=== PATIENT | male | born 1990 | race Caucasian/White ===

== ENCOUNTER → 2020-06-18 15:50 | Outpatient (BNVA) | payer OTHER, MEDICAID, SELFPAY | PROVIDERS: Visit Provider Anesthesiology | DX: S14.9XXA Injury of unspecified nerves of neck, initial encounter (principal) | CPT/HCPCS: 99204 ==

== ENCOUNTER 2020-06-25 14:00 | Outpatient (RCR) | payer OTHER, SELFPAY | END 2020-08-07 23:55 | disposition home or self-care (01) | LOC: HO.PAOS 14:00 | PROVIDERS: Visit Provider Psychologist | DX: F43.23 Adjustment disorder with mixed anxiety and depressed mood (principal) | CPT/HCPCS: 90791 ==

== ENCOUNTER 2021-06-29 13:45 | Outpatient (REF) | payer OTHER, SELFPAY | END 2021-06-29 13:46 | disposition home or self-care (01) | LOC: HO.LAB 13:45 | PROVIDERS: PCP Internal Medicine; Visit Provider Anesthesiology | DX: S14.9XXA Injury of unspecified nerves of neck, initial encounter (principal); G89.4 Chronic pain syndrome | CPT/HCPCS: 99212 ==

== ENCOUNTER → 2021-07-15 15:23 | Outpatient (BNVA) | payer OTHER, SELFPAY | PROVIDERS: PCP Internal Medicine; Visit Provider Anesthesiology | DX: G89.4 Chronic pain syndrome (principal); S14 Injury of nerves and spinal cord at neck level; S14.2 Injury of nerve root of cervical spine | CPT/HCPCS: 99212 ==

== ENCOUNTER → 2021-07-29 10:49 | Outpatient (BNVA) | payer OTHER, SELFPAY | PROVIDERS: PCP Internal Medicine; Visit Provider Anesthesiology | DX: Z51.81 Encounter for therapeutic drug level monitoring (principal); G89.4 Chronic pain syndrome; S14 Injury of nerves and spinal cord at neck level; S14.2 Injury of nerve root of cervical spine | CPT/HCPCS: 99212 ==

== ENCOUNTER 2024-09-28 11:23 | Emergency (ER) | payer MEDICAID, SELFPAY ==
[2024-09-28 12:12] VITALS: BP 113/52; PULSE 73; RESP 20; TEMP 36.6; O2SAT 95; BMI 37.0
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
--- OUTSIDE RECORDS SUMMARY | 2024-09-28 14:57 | XMS_ITS | Encounter Summary ---
Author Organization [facility] Address [address] [place] [address] Care Team Providers Care Extractor Loader And Unloader Name Role Phone Unknown, Doctor Primary Care Provider Unavailabl e Encounter Details Date Type Department Care Team (Late st Contact Info) Description 08/15/2024 Telephone [facility] [address], [place] [id number] Houston Heller MD [address], [place] [id number] Social History Tobacco Use Types Packs/Day Years Used Date Smoking Tobacco: Former Cigarettes Smokeless Tobacco: Never Alcohol Use Standard Drinks/Week Comments Yes 0 (1 standard drink = 0.6 oz pur e alcohol) Sex and Gender Information Value Date Recorded Sex Assigned at Male 08/19/2023 12:28 PM EST Legal Sex Male 5:35 AM EDT Gender Identity Male 08/23/2023 11:07 AM EST Sexual Orientation Not on file documented as of this encounter Miscellaneous Notes * Telephone Encounter - Rebecca Lopez - 09/06/2024 3:03 PM EST Call went straight to voicemail- left another message looking for WC information. * Telephone Encounter - Edgar Brady - 08/15/2024 10:47 AM EST Left voicemail for patient to touch base and see about following up with Dr Heller. We need to know if he is using workers comp and we would need an VITA with his insurance as we are not contracted with [facility]. documented in this encounter Plan of Treatment Not on file documented as of this encounter Visit Diagnoses Not on filedocumented in this encounter Care Teams Extractor Loader And Unloader Relationship Specialty Start Date End Date Unknown, Doctor Unknown Unknown, CAT PCP - General 08/19/23 documented as of this encounter
--- OUTSIDE RECORDS SUMMARY | 2024-09-28 14:57 | XMS_ITS | Clinical Summary ---
Author Organization [facility] Address [address] [place] [address] Care Team Providers Care Bagging Salvager Name Role Phone Unknown, Doctor Primary Care Provider Unavailabl e Allergies No known active allergies Medications methylPREDNISol one (MEDROL DOSEPACK) 4 mg tablet follow package directions 1 tablet Active Encounters Date Type Department Care Team Description 08/15/2024 Telephone [facility] [address] [place] [address] Houston Heller MD 07/12/2024 Telephone [facility] [address] [place] [address] Houston Heller MD 07/10/2024 9:12 PM EST - 07/11/2024 1:51 PM EST Emergency [facility] Emergency Department [address] [place] [address] Sonny Sheikh MD Sanseverino, Alexandra M., MD Acute low back pain without sciatica, unspecified back pain laterality (Primary Dx) Discharge Disposition: Home or Self Care (01) from Last 3 Months Social History Tobacco Use Types Packs/Day Years Used Date Smoking Tobacco: Former Cigarettes Smokeless Tobacco: Never Tobacco Cessation:Counseling Given: Not Answered Alcohol Use Standard Drinks/Week Comments Yes 0 (1 standard drink = 0.6 oz pur e alcohol) Sex and Gender Information Value Date Recorded Sex Assigned at Male 08/19/2023 12:28 PM EST Legal Sex Male 5:35 AM EDT Gender Identity Male 08/23/2023 11:07 AM EST Sexual Orientation Not on file Last Filed Vital Signs Vital Sign Reading Time Taken Comments Blood Pressure 142/75 07/11/2024 1:01 PM EST Pulse 60 07/11/2024 1:01 PM EST Temperature 36.8 ??C (98.2 ??F) 07/10/2024 6:09 PM ES T Respiratory Rate 16 07/11/2024 1:01 PM EST Oxygen Saturation 98% 07/11/2024 1:01 PM EST Inhaled Oxygen Concentration - - Weight 127 kg (280 lb) 07/10/2024 6:09 PM EST Height 193 cm (6' 4 ) 07/10/2024 6:09 PM EST Body Mass Index 34.08 07/10/2024 6:09 PM EST Plan of Treatment Health Maintenance Due Date Last Done Comments HIV Screening 1991 Varicella Vaccines (1 of 2 - 13+ 2-dose series) 2004 Hepatitis B Vaccines (1 of 3 - 19+ 3-dose series) 2010 COVID-19 Vaccine ( - 2023-2 5 season) 2024 Influenza Vaccine (#1) 2024 05/14/2014 Alcohol/Substance Use Screening 08/29/2024 DTaP,Tdap,and Td Vaccines (3 - Td or Tdap) 02/01/2028 01/31/2018, 01/04/2011 RSV Vaccine (60+ years old and patients) (1 - 1-dose 75+ series) 2066 Pneumococcal Vaccine: Pediatric (0-5 Years) and At-Risk Patients (6-64 Years) Aged Out No longer eligible based on patient's age to complete this topic Procedures * Due to [place] state law, this organization might not be sharing negative HIV tests. Procedure Name Priority Date/Time Associated Diagnosis Comments BASIC METABOLIC PANEL STAT 07/10/2024 10:53 PM EST TYPE AND SCREEN STAT 07/10/2024 10:53 PM EST PROTIME-INR STAT 07/10/2024 10:53 PM EST CBC AUTO DIFFERENTIAL STAT 07/10/2024 10:53 PM EST MRI LUMBAR SPINE WO CONTRAST STAT 07/10/2024 2:00 AM EST from Last 3 Months Results * Due to [place] state law, this organization might not be sharing negative HIV tests. * (ABNORMAL) CBC Auto Differential (07/10/2024 10:53 PM EST) WBC 6.2 3.8 - 10.8 10*3/uL 07/10/2024 11:13 PM EST [facility] RBC 4.47 4.20 - 5.80 10*6/uL 07/10/2024 11:13 PM [facility] Hemoglobin 12.2(L) 13.2 - 17.1 g/dL 07/10/2024 11:13 PM EST [facility] Hematocrit 37.9(L) 38.5 - 50.0 % 07/10/2024 11:13 PM EST [facility] MCV 84.8 80.0 - 100.0 fL 07/10/2024 11:13 PM EST [facility] MCH 27.3 27.0 - 33.0 pg 07/10/2024 11:13 PM EST [facility] MCHC 32.2 32.0 - 36.0 g/dL 07/10/2024 11:13 PM EST [facility] RDW 13.5 11.0 - 15.0 % 07/10/2024 11:13 PM EST [facility] Platelets 225 140 - 400 10*3/uL 07/10/2024 11:13 PM [facility] MPV 10.3 7.5 - 12.5 fL 07/10/2024 11:13 PM EST [facility] Neutrophil % 42.3 % 07/10/2024 11:13 PM EST [facility] Immature Grans % 0.3 0.0 - 0.9 % 07/10/2024 11:13 PM EST [facility] Lymphocyte % 46.3 % 07/10/2024 11:13 PM EST [facility] Monocyte % 7.6 % 07/10/2024 11:13 PM EST [facility] Eosinophil % 3.2 % 07/10/2024 11:13 PM EST [facility] Basophil % 0.3 % 07/10/2024 11:13 PM EST [facility] Neutrophil # 2.62 1.50 - 7.80 10*3/uL 07/10/2024 11:13 PM EST [facility] Immature Grans # <0.03 <=0.03 10*3/uL 07/10/2024 11:13 PM EST [facility] Lymphocyte # 2.90 0.85 - 3.90 10*3/uL 07/10/2024 11:13 PM EST [facility] Monocyte # 0.50 0.20 - 0.95 10*3/uL 07/10/2024 11:13 PM EST [facility] Eosinophil # 0.20 0.02 - 0.50 10*3/uL 07/10/2024 11:13 PM EST [facility] Basophil # <0.03 0.00 - 0.20 10*3/uL 07/10/2024 11:13 PM EST [facility] nRBC % 0.0 /100 WBCs 07/10/2024 11:13 PM EST [facility] nRBC # <0.01 <0.01 10*3/uL 07/10/2024 11:13 PM EST [facility] Blood Structure of peripheral vein / Unknown Venipuncture / Unknown 07/10/2024 10:53 PM EST 07/10/2024 11:07 PM EST us Sonny Sheikh MD LAB BLOOD ORDERABLES F inal Result Performing Organization Address [facility] Co de Phone Number [facility] [address] [place] [address], [place] * Protime-INR (07/10/2024 10:53 PM EST) PT 10.2 9.6 - 12.4 Seconds 07/10/2024 11:53 PM EST [facility] INR 1.0 0.9 - 1.1 07/10/2024 11:53 PM EST [facility] Comment:The optimal therapeu tic INR range for patients treated with Vitamin K antagonists (VKAS, e.g., Warfarin) is 2.0 to 3.5. Discuss the desired range with your doctor/care team. Blood Structure of peripheral vein / Unknown Venipuncture / Unknown 07/10/2024 10:53 PM EST 07/10/2024 11:07 PM EST Sonny Sheikh MD LAB BLOOD ORDERABLES F inal Result Performing Organization Address [facility] Co de Phone Number [facility] [address] [place] [address], [place] * Type and Screen (07/10/2024 10:53 PM EST) ABO Blood Type O 07/11/2024 12:15 AM EST [facility] RH Type Negative 07/11/2024 12:15 AM EST [facility] Expiration Date/Time 2024-07-13 23:59 07/11/2024 12:15 AM EST [facility] Antibody Screen Negative 07/11/2024 12:15 AM EST [facility] Blood Structure of peripheral vein / Unknown Venipuncture / Unknown 07/10/2024 10:53 PM EST 07/10/2024 11:24 PM EST Sonny Sheikh MD LAB BLOOD BANK TEST OR DERABLES Edited Result - Final [facility] [address] [place] [address], * (ABNORMAL) BMP - Basic Metabolic Panel (07/10/2024 10:53 PM EST) NA 142 135 - 145 mmol/L 07/10/2024 11:28 PM EST [facility] K 4.1 3.5 - 5.3 mmol/L 07/10/2024 11:28 PM EST [facility] Cl 106 98 - 107 mmol/L 07/10/2024 11:28 PM EST [facility] CO2 26 22 - 32 mmol/L 07/10/2024 11:28 PM EST [facility] BUN 15 7 - 23 mg/dL 07/10/2024 11:28 PM EST [facility] Creatinine 0.90 0.60 - 1.30 mg/dL 07/10/2024 11:28 PM EST [facility] Glucose 103(H) 65 - 99 mg/dL 07/10/2024 11:28 PM EST [facility] Calcium 8.9 8.6 - 10.5 mg/dL 07/10/2024 11:28 PM [facility] Anion Gap 10 5 - 15 07/10/2024 11:28 PM EST [facility] eGFR >90 >=60 mL/min/1. 73m2 07/10/2024 11:28 PM EST [facility] Comment:The estimated glomer ular filtration rate (eGFR) is calculated using a new formula developed by the NKF-ASN task force to eliminate race-based correction factors. The new formula uses serum/plasma creatinine, age, and gender to determine eGFR. A value below 60mls/min might indicate kidney disease and will be flagged. For additional information, see Rnad et al, Am J Kidney Dis. 2021;79(2):268- 288, A Unifying Approach for GFR estimation: Recommendations of the NKF-ASN Task Force on Reassessing the Inclusion of Race in Diagnosing Kidney Disease . Blood Structure of peripheral vein / Unknown Venipuncture / Unknown 07/10/2024 10:53 PM EST 07/10/2024 11:07 PM EST us Sonny Sheikh MD LAB BLOOD ORDERABLES F inal Result Performing Organization Address City/State/[facility] Co de Phone Number [facility] [address] [place] [address], [place] * MRI Lumbar Spine without Contrast (07/10/2024 2:00 AM EST) Anatomical Region Laterality Modality Spine, L-spine Magnetic Resonan ce 07/11/2024 1:00 AM EST Impressions 07/11/2024 2:26 AM EST 1. ??No MRI findings to suggest cauda equina. 2. ??L5-S1 disc protrusion encroaching on the left lateral recess and contacting the exiting L5 nerve root. 3. ??Suspected small annular fissure at the posterior L4-L5 intervertebral disc. 4. ??Multilevel mild circumferential disc bulges with up to mild central canal stenosis at L4-L5 and L5-S1. Multilevel neural foraminal narrowing, most prominent at L4-L5 (moderate bilaterally). 5. ??L3 vertebral body hemangioma and probable additional hemangioma in the left L3 pedicle. I, Vicenta Bradshaw, have reviewed the examination and concur with the findings as reported or so edited. Trainee: ??Ngoc Castillo If this radiology report contains a blank impression section, it is an incomplete radiology report. ??Please contact the interpreting radiologist or applicable radiology division as soon as possible to obtain the completed interpretation. ? Workstation ID: [id number] Narrative 07/11/2024 2:26 AM EST INDICATION: Low back pain, cauda equina syndrome suspected TECHNIQUE: Multiplanar, multisequence MRI of the lumbar spine was performed without contrast using standard departmental protocol. COMPARISON: There are no prior studies available at this time. FINDINGS: Numbering: This report assumes five nonrib-bearing lumbar-type vertebrae. ??L5 is identified by the iliolumbar ligament and lumbosacral angle. Alignment: Mild retrolisthesis of L5 over S1. Bones: Vertebral body heights are within normal limits. ??Rounded T1 mildly hyperintense, T2 hyperintense lesion within L3 vertebral body with trabeculations, likely representing a intraosseous hemangioma. Additional region with similar features in the L3 left pedicle. Bone marrow signal is otherwise unremarkable. Developmental stenosis: Absent. Sacroiliac joints: Incompletely imaged. The portions imaged are congruent bilaterally. Nerves: The conus medullaris terminates at L1-L2. ??The visualized spinal cord signal is intact. ??No clumping or thickening of cauda equina nerve roots. T12-L1: The intervertebral disc is within normal limits. There is no canal stenosis. No significant narrowing of the neural foramina bilaterally. L1-L2: Intervertebral disc: Minimal circumferential bulging Spinal canal: No stenosis. Neuroforamina: Mild narrowing bilaterally Facet joints: Mild arthropathy L2-L3: Intervertebral disc: Minimal circumferential bulging. Spinal canal: Mild central canal stenosis. Neuroforamina: Mild bilateral narrowing Facet joints: Mild to moderate arthropathy. L3-L4: Intervertebral disc: Minimal circumferential bulging Spinal canal: No stenosis. Neuroforamina: Mild bilateral narrowing.. Facet joints: Moderate facet arthropathy. L4-L5: Intervertebral disc: Mild circumferential disc bulge. Small annular fissure along the posterior disc bulge. Spinal canal: Mild central canal stenosis. Neuroforamina: Multiple moderate narrowing bilaterally Facet joints: Multiple moderate facet arthropathy L5-S1: Intervertebral disc: Mild circumferential bulging. Disc protrusion at the left lateral recess contacting the exiting L5 nerve root (series 5, image 10) measuring roughly 1.5 x 0.9 x 1.1 cm. Spinal canal: Mild central canal stenosis. Neuroforamina: Mild to moderate narrowing bilaterally. Facet joints: Mild facet joint arthropathy. Small left facet joint effusion. Abdomen/Retroperitoneum: Partially imaged structures are unremarkable in appearance. Paraspinal muscles and soft tissues: Within normal limits. Resulting Agency Comment [id number] Procedure Note Vicenta Bradshaw MD - 07/11/2024 INDICATION: Low back pain, cauda equina syndrome suspected TECHNIQUE: Multiplanar, multisequence MRI of the lumbar spine wasperformed without contrast using standard departmental protocol. COMPARISON: There are no prior studies available at this time. FINDINGS: Numbering: This report assumes five nonrib-bearing lumbar-type vertebrae.L5 is identified by the iliolumbar ligament and lumbosacral angle. Alignment: Mild retrolisthesis of L5 over S1. Bones: Vertebral body heights are within normal limits. Rounded T1 mildlyhyperintense, T2 hyperintense lesion within L3 vertebral body withtrabeculations, likely representing a intraosseous hemangioma. Additionalregion with similar features in the L3 left pedicle. Bone marrow signal isotherwise unremarkable. Developmental stenosis: Absent. Sacroiliac joints: Incompletely imaged. The portions imaged are congruentbilaterally. Nerves: The conus medullaris terminates at L1-L2. The visualized spinalcord signal is intact. No clumping or thickening of cauda equina nerveroots. T12-L1: The intervertebral disc is within normal limits. There is no canalstenosis. No significant narrowing of the neural foramina bilaterally. L1-L2: Intervertebral disc: Minimal circumferential bulging Spinal canal: No stenosis. Neuroforamina: Mild narrowing bilaterally Facet joints: Mild arthropathy L2-L3: Intervertebral disc: Minimal circumferential bulging. Spinal canal: Mild central canal stenosis. Neuroforamina: Mild bilateral narrowing Facet joints: Mild to moderate arthropathy. L3-L4: Intervertebral disc: Minimal circumferential bulging Spinal canal: No stenosis. Neuroforamina: Mild bilateral narrowing.. Facet joints: Moderate facet arthropathy. L4-L5: Intervertebral disc: Mild circumferential disc bulge. Small annularfissure along the posterior disc bulge. Spinal canal: Mild central canal stenosis. Neuroforamina: Multiple moderate narrowing bilaterally Facet joints: Multiple moderate facet arthropathy L5-S1: Intervertebral disc: Mild circumferential bulging. Disc protrusion at theleft lateral recess contacting the exiting L5 nerve root (series 5, image10) measuring roughly 1.5 x 0.9 x 1.1 cm. Spinal canal: Mild central canal stenosis. Neuroforamina: Mild to moderate narrowing bilaterally. Facet joints: Mild facet joint arthropathy. Small left facet jointeffusion. Abdomen/Retroperitoneum: Partially imaged structures are unremarkable inappearance. Paraspinal muscles and soft tissues: Within normal limits. IMPRESSION: 1. No MRI findings to suggest cauda equina. 2. L5-S1 disc protrusion encroaching on the left lateral recess andcontacting the exiting L5 nerve root. 3. Suspected small annular fissure at the posterior L4-L5 intervertebraldisc. 4. Multilevel mild circumferential disc bulges with up to mild centralcanal stenosis at L4-L5 and L5-S1. Multilevel neural foraminal narrowing,most prominent at L4- L5 (moderate bilaterally). 5. L3 vertebral body hemangioma and probable additional hemangioma in theleft L3 pedicle. I, Vicenta Bradshaw, have reviewed the examination and concur with thefindings as reported or so edited. Trainee: Ngoc Castillo If this radiology report contains a blank impression section, it is anincomplete radiology report. Please contact the interpreting radiologistor applicable radiology division as soon as possible to obtain thecompleted interpretation. Workstation ID: [id number] Sonny Sheikh MD IMG MRI PROCEDURES Fin al Result from Last 3 Months Insurance [facility] MEDICAID WORKERS COMPENSATION Care Teams Bagging Salvager Relationship Specialty Start Date End Date Unknown, Doctor Unknown Unknown, CAT PCP - General 08/19/23
--- OUTSIDE RECORDS SUMMARY | 2024-09-28 14:57 | XMS_ITS | Clinical Summary ---
Author Organization [facility] Address [address] [place] [address] Care Team Providers Care Guest Relation Officer Name Role Phone Allen Diaz MD Primary Care Provider [phone]- [phone] Allergies No known active allergies Medications Medication Sig Dispensed Refills Start Date End Date Status silver sulfADIAZINE (SILVADENE) 1 % cream Apply topically daily. 50 g 0 03/18/2023 Active oxyCODONE-acetaminoph en (PERCOCET) 5-325 MG per tablet Take 1 tablet by mouth every 6 (six) hours as needed for pain. 12 tablet 0 03/21/2023 Active Active Problems No known active problems Social History Tobacco Use Types Packs/Day Years Used Date Smoking Tobacco: Never Assessed Sex and Gender Information Value Date Recorded Sex Assigned at Male 03/18/2023 9:36 AM EDT Gender Identity Male 03/18/2023 9:36 AM EDT Sexual Orientation Not on file Job Start Date Occupation Industry Not on file Not on file Not on file Last Filed Vital Signs Vital Sign Reading Time Taken Comments Blood Pressure 118/82 03/21/2023 1:53 PM EDT Pulse 85 03/21/2023 1:53 PM EDT Temperature 36.4 ??C (97.5 ??F) 03/21/2023 1:53 PM ED T Respiratory Rate 20 03/21/2023 1:53 PM EDT Oxygen Saturation 98% 03/21/2023 1:53 PM EDT Inhaled Oxygen Concentration - - Weight 124.7 kg (275 lb) 03/21/2023 1:53 PM EDT Height 193 cm (6' 4 ) 03/21/2023 1:53 PM EDT Body Mass Index 33.47 03/21/2023 1:53 PM EDT Plan of Treatment Health Maintenance Due Date Last Done Comments Hepatitis B Vaccines (1 of 3 - 3-dose series) 1991 Hepatitis C Screening 1991 COVID-19 Vaccine (#1) 03/14/1992 Depression Screening 2003 Preventative Health Evaluation 2009 Influenza Vaccine (#1) 2024 05/14/2014 DTap / Tdap / Td (2 - Td or Tdap) 02/01/2028 018 Pneumococcal Vaccine Aged Out No long er eligible based on patient's age to complete this topic RSV Ped < 20 months Aged Out No longe r eligible based on patient's age to complete this topic Care Teams Guest Relation Officer Relationship Specialty Start Date End Date Allen Diaz MD [address] [place] [address] PCP - General Internal Medicine 05/25/19
--- OUTSIDE RECORDS SUMMARY | 2024-09-28 14:57 | XMS_ITS | Referral Summary ---
Author Organization [facility] Address [address] [place] [address] Care Team Providers Care Simplex Operator Name Role Phone Unknown, Doctor Primary Care Provider Unavailabl e Encounters Date Type Department Care Team Description 08/15/2024 Telephone [facility] [address] [place] [phone] Houston Heller MD 07/12/2024 Telephone [facility] [address] [place] [phone] Houston Heller MD 07/10/2024 9:12 PM EST - 07/11/2024 1:51 PM EST Emergency [facility] Emergency Department [address] [place] [phone] Sonny Sheikh MD Sanseverino, Alexandra M., MD Acute low back pain without sciatica, unspecified back pain laterality (Primary Dx) Discharge Disposition: Home or Self Care (01) from Last 3 Months Allergies No known active allergies Medications methylPREDNISol one (MEDROL DOSEPACK) 4 mg tablet follow package directions 1 tablet Active Social History Tobacco Use Types Packs/Day Years [...] 07/10/2024 6:09 PM EST Plan of Treatment Not on file Procedures * Due to [place] [employer] law, this organization might not be sharing [...] Last 3 Months Results * Due to [place] [employer] law, this organization might not be sharing negative HIV tests. * (ABNORMAL) CBC Auto Differential (07/10/2024 10:53 PM EST) WBC 6.2 3.8 - 10.8 10*3/uL 07/10/2024 11:13 PM EST [facility] RBC 4.47 4.20 - 5.80 10*6/uL 07/10/2024 11:13 PM EST [facility] Hemoglobin 12.2(L) 13.2 - 17.1 g/dL 07/10/2024 11:13 PM [facility] Hematocrit 37.9(L) 38.5 - 50.0 % 07/10/2024 11:13 PM EST [facility] MCV 84.8 80.0 - 100.0 fL 07/10/2024 11:13 PM [facility] MCH 27.3 27.0 - 33.0 pg 07/10/2024 11:13 PM [facility] MCHC 32.2 32.0 - 36.0 g/dL 07/10/2024 11:13 PM [facility] RDW 13.5 11.0 - 15.0 % 07/10/2024 11:13 PM [facility] Platelets 225 140 - 400 10*3/uL 07/10/2024 11:13 PM [facility] MPV 10.3 7.5 - 12.5 fL 07/10/2024 11:13 PM [facility] Neutrophil % 42.3 % 07/10/2024 11:13 PM [facility] Immature Grans % 0.3 0.0 - 0.9 % 07/10/2024 11:13 PM [facility] Lymphocyte % 46.3 % 07/10/2024 11:13 PM EST [facility] Monocyte % 7.6 % 07/10/2024 11:13 PM EST [facility] Eosinophil % 3.2 % 07/10/2024 11:13 PM EST [facility] Basophil % 0.3 % 07/10/2024 11:13 PM [facility] Neutrophil # 2.62 1.50 - 7.80 10*3/uL 07/10/2024 11:13 PM [facility] Immature Grans # <0.03 <=0.03 10*3/uL 07/10/2024 11:13 PM EST [facility] Lymphocyte # 2.90 0.85 - 3.90 10*3/uL 07/10/2024 11:13 PM EST [facility] Monocyte # 0.50 0.20 - 0.95 10*3/uL 07/10/2024 11:13 PM EST [facility] Eosinophil # 0.20 0.02 - 0.50 10*3/uL 07/10/2024 11:13 PM EST [facility] Basophil # <0.03 0.00 - 0.20 10*3/uL 07/10/2024 11:13 PM EST [facility] nRBC % 0.0 /100 WBCs 07/10/2024 11:13 PM EST [facility] nRBC # <0.01 <0.01 10*3/uL 07/10/2024 11:13 PM EST [facility] Blood Structure of peripheral vein / Unknown Venipuncture / Unknown 07/10/2024 10:53 PM EST 07/10/2024 11:07 PM EST Sonny Sheikh MD LAB BLOOD ORDERABLES F inal Result [facility] [address] [place] [address], * Protime-INR (07/10/2024 10:53 PM EST) PT 10.2 9.6 - 12.4 Seconds 07/10/2024 11:53 PM EST [facility] INR 1.0 0.9 - 1.1 07/10/2024 11:53 PM EST [facility] Comment:The optimal therapeu tic INR range for patients treated with Vitamin K antagonists (VKAS, e.g., Warfarin) is 2.0 to 3.5. Discuss the desired range with your doctor/care team. Blood Structure of peripheral vein / Unknown Venipuncture / Unknown 07/10/2024 10:53 PM EST 07/10/2024 11:07 PM EST Sonny Sheikh MD LAB BLOOD ORDERABLES F inal Result Performing Organization Address [facility] Co de Phone Number [facility] [address] [place] [address], * Type and Screen (07/10/2024 10:53 PM [...] TEST OR DERABLES Edited Result - Final Performing Organization Address [facility] Co de Phone Number [facility] [address] [place] [address], [place] [phone] * (ABNORMAL) BMP - Basic Metabolic Panel (07/10/2024 10:53 PM EST) NA 142 135 - 145 mmol/L 07/10/2024 11:28 PM EST [facility] K 4.1 3.5 - 5.3 mmol/L 07/10/2024 11:28 PM EST [facility] Cl 106 98 - 107 mmol/L 07/10/2024 11:28 PM EST [facility] CO2 26 22 - 32 mmol/L 07/10/2024 11:28 PM EST [facility] BUN 15 7 - 23 mg/dL 07/10/2024 11:28 PM EST [facility] Creatinine 0.90 0.60 - 1.30 mg/dL 07/10/2024 11:28 PM EST [facility] Glucose 103(H) 65 - 99 mg/dL 07/10/2024 11:28 PM EST [facility] Calcium 8.9 8.6 - 10.5 mg/dL 07/10/2024 11:28 PM EST [facility] Anion Gap 10 5 - 15 07/10/2024 11:28 PM EST [facility] eGFR >90 >=60 mL/min/1. 73m2 07/10/2024 11:28 PM EST [facility] Comment:The estimated glomer ular filtration rate (eGFR) is calculated using a new formula developed by the NKF-ASN task force to eliminate race-based correction factors. The new formula uses serum/plasma creatinine, age, and gender to determine eGFR. A value below 60mls/min might indicate kidney disease and will be flagged. For additional information, see Gordillo et al, Am J Kidney Dis. 2021;79(2):268- 288, A Unifying Approach for GFR estimation: Recommendations of the NKF-ASN Task Force on Reassessing the Inclusion of Race in Diagnosing Kidney Disease . Blood Structure of peripheral vein / Unknown Venipuncture / Unknown 07/10/2024 10:53 PM EST 07/10/2024 11:07 PM EST us Sonny Sheikh MD LAB BLOOD ORDERABLES F inal Result [facility] [address] [place] [address], [place] * MRI Lumbar Spine without Contrast [...] obtain the completed interpretation. ? Workstation ID: [id number] Narrative 07/11/2024 2:26 AM EST INDICATION: Low [...] tissues: Within normal limits. Resulting Agency Comment [id number] Procedure Note Vicenta Bradshaw MD - 07/11/2024 [...] probable additional hemangioma in theleft L3 pedicle. IVicenta, have reviewed the examination and concur with thefindings as reported or so edited. Trainee: Ngoc Castillo If this radiology report contains a blank impression section, it is anincomplete radiology report. Please contact the interpreting radiologistor applicable radiology division as soon as possible to obtain thecompleted interpretation. Workstation ID: [id number] us Sonny Sheikh MD IMG MRI PROCEDURES Fin al Result from Last 3 Months Insurance [employer] Care Teams Simplex Operator Relationship Specialty Start Date End Date Unknown, Doctor Unknown Unknown, [place] PCP - General 08/19/23
--- OUTSIDE RECORDS SUMMARY | 2024-09-28 14:57 | XMS_ITS | Clinical Summary ---
Author Organization [employer] [email or web address] [facility] Address [address] [place] [address] Care Team Providers Care Services Account Manager Name Role Phone Allen Diaz MD Primary Care Provider [phone] Social History Tobacco Use Types Packs/Day Years Used Date Smoking Tobacco: Never Assessed Sex and Gender Information Value Date Recorded Sex Assigned at Not on file Gender Identity Not on file Sexual Orientation Not on file Obstetrics History Last Filed Vital Signs Vital Sign Reading Time Taken Comments Blood Pressure 127/85 11/03/2021 2:44 PM EST Aut o Pulse 99 11/03/2021 2:44 PM EST Temperature - - Respiratory Rate - - Oxygen Saturation - - Inhaled Oxygen Concentration - - Weight 123 kg (271 lb) 11/03/2021 2:44 PM EST Height - - Body Mass Index - - Plan of Treatment Health Maintenance Due Date Last Done Comments Hepatitis B Vaccines (1 of 3 - 19+ 3-dose series) 2010 Depression Screening 08/01/2022 HIV Screening 08/01/2022 Hepatitis C Screening 08/01/2022 Social Influencers of Health Screening 08/01/2022 COVID-19 Vaccine ( - 2023-2 5 season) 2024 Influenza Vaccine (#1) 2024 05/14/2014 DTaP,Tdap,and Td Vaccines (2 - Td or Tdap) 02/01/2028 01/31/2018 HIB Vaccines Aged Out No longer eligi ble based on patient's age to complete this topic HPV Vaccines Aged Out No longer eligi ble based on patient's age to complete this topic Hepatitis A Vaccines Aged Out No long er eligible based on patient's age to complete this topic IPV Vaccines Aged Out No longer eligi ble based on patient's age to complete this topic MMR Vaccines Aged Out No longer eligi ble based on patient's age to complete this topic Meningococcal ACWY Vaccine Aged Out N o longer eligible based on patient's age to complete this topic Pneumococcal Vaccine: Pediat rics (0 to 5 Years) and At-Risk Patients (6 to 64 Years) Aged Out No longer eligi ble based on patient's age to complete this topic RSV Immunization Patients Un tano 20 months Aged Out No longer eligible b ased on patient's age to complete this topic Varicella Vaccines Aged Out No longer eligible based on patient's age to complete this topic Care Teams Services Account Manager Relationship Specialty Start Date End Date Allen Diaz MD PCP - General Internal Medicine 05/25/19
[2024-09-28] MEDS: Tetracaine HCl/PF 0.5% Oph Sol 4 ML DROPS 3 DROP EYE-BOTH (15:15)
[2024-09-28] MEDS: Fluorescein Sodium STRIP 1 STRIP EYE-BOTH (15:15)
[2024-09-28 16:09] VITALS: BP 122/75; PULSE 72; RESP 16; TEMP 36.2; O2SAT 98
[2024-09-28 16:22] LABS: Amphetamine Screen Urine Not Detected (Not Detect); Barbiturates, Urine Not Detected (Not Detect); Benzodiazepines Screen Urine Not Detected (Not Detect); Buprenorphine Scr Not Detected (Not Detect); Cannabinoid Screen Urine Not Detected (Not Detect); Cocaine Screen Urine Not Detected (Not Detect); Fentanyl, urine Not Detected (Not Detect); Methadone Screen, Urine Not Detected (Not Detect); Opiate Screen Urine Not Detected (Not Detect); Oxycodone Screen Urine Not Detected (Not Detect); Phencyclidine Screen Urine Not Detected (Not Detect)
== END 2024-09-28 16:10 | disposition home or self-care (01) ==
PROVIDERS: Physician Assistant; Emergency Provider Emergency Medicine; PCP Internal Medicine
DX: S05.02XA Injury of conjunctiva and corneal abrasion without foreign body, left eye, initial encounter (principal); S05.01XA Injury of conjunctiva and corneal abrasion without foreign body, right eye, initial encounter; H57.13 Ocular pain, bilateral; X58.XXXA Exposure to other specified factors, initial encounter; Y93.9 Activity, unspecified; Y92.9 Unspecified place or not applicable; Y99.0 Civilian activity done for income or pay; Z79.899 Other long term (current) drug therapy; Z51.81 Encounter for therapeutic drug level monitoring; Z87.891 Personal history of nicotine dependence
CPT/HCPCS: 80307; 99283